=== PATIENT | female | born 1995 | race African-American/Black ===

== ENCOUNTER 2019-02-02 17:10 | Emergency (ER) | payer SELFPAY ==
[~2019-02-02] VITALS: Ht 162.6 cm; Wt 53.0 kg
[2019-02-02] MEDS ORDERED: SODIUM CHLORIDE 0.9% 1,000 ML IV ONE (18:10)
[2019-02-02 18:28] LABS: BASOPHILS % 0.5 % (0.0-2.0); EOSINOPHILS % 0.1 % (0.0-5.0); HEMATOCRIT. 35.6 % (36.0-48.0); HEMOGLOBIN. 12.2 g/dL (12.0-16.0); LYMPHOCYTES % 9.2 % (20.0-50.0); MEAN CORPUSCULAR HEMOGLOBIN 31.8 pg (28.0-32.0); MEAN CORPUSCULAR VOLUME 93.2 fL (81.0-99.0); MONOCYTES % 3.8 % (2.0-8.0); NEUTROPHILS % 86.4 % (40.0-76.0); PLATELET 221 x1000/uL (130-400); RED BLOOD CELL COUNT 3.82 mill/uL (4.2-5.4); RED CELL DISTRIBUTION WIDTH 12.9 % (11.6-14.6)
[2019-02-02 18:31] LABS: CHLORIDE 109 mEq/L (98-107)
[2019-02-02 18:34] LABS: D-DIMER < 0.19 mg/L FEU (<0.50); INR 1.2; PROTHROMBIN TIME 11.9 sec (9.6-11.0)
[2019-02-02 18:35] LABS: ETHANOL BLOOD < 10 mg/dL
[2019-02-02 19:07] LABS: CLARITY URINE CLEAR (CLEAR); COLOR URINE YELLOW (YELLOW); KETONES URINE 3+ (NEGATIVE); LEUKOCYTE ESTERASE URINE TRACE (NEGATIVE); NITRITE URINE NEGATIVE (NEGATIVE); OCCULT BLOOD URINE NEGATIVE (NEGATIVE); PROTEIN URINE NEGATIVE (NEGATIVE); SPECIFIC GRAVITY URINE 1.028 (1.005-1.030)
[2019-02-02 19:27] LABS: *AMPHETAMINES SCREEN URINE NEGATIVE (NEGATIVE); *BARBITURATES SCREEN URINE NEGATIVE (NEGATIVE); *BENZODIAZEPINES SCREEN URINE NEGATIVE (NEGATIVE); *COCAINE SCREEN URINE NEGATIVE (NEGATIVE); METHADONE URINE SCREEN NEGATIVE (NEGATIVE); OPIATES URINE SCREEN NEGATIVE (NEGATIVE); PHENCYCLIDINE URINE SCREEN NEGATIVE (NEGATIVE)
[2019-02-02 19:28] LABS: CANNABINOID URINE SCREEN NEGATIVE (NEGATIVE)
[2019-02-02 20:02] VITALS: BP 111/67
== END 2019-02-02 20:47 | disposition home or self-care (01) ==
LOC: ER 17:10
DX: R00.2 Palpitations (principal); N30.00 Acute cystitis without hematuria; R01.1 Cardiac murmur, unspecified
CPT/HCPCS: 36415; 71045; 80053; 80305; 80320; 81003; 81025; 84443; 84484; 85025; 85379; 85610; 99284; J7030; G0480